=== PATIENT | female | born 1945 | race Caucasian/White ===

== ENCOUNTER → 2021-06-06 | Outpatient (CLI) | payer BC, MEDICARE ==
[~2021-06-06] MED LIST: CASIRIVIMAB (REGN10933) (EUA) 600 MG, IMDEVIMAB (REGN10987) (EUA) 600 MG in SODIUM CHLO... IVPB NR; SODIUM CHLORIDE 0.9% 50 ML IVPB NR; SODIUM CHLORIDE 0.9% 500 ML 500 ML in EMPTY BAG 1 BAG IV PRN
[2021-06-06 08:57] VITALS: RESP 16
[2021-06-06 10:10] VITALS: BP 145/67; PULSE 56; TEMP 98
== END ==
LOC: PROCWHC3 08:03
PROVIDERS: ATTEND Student in an Organized Health Care Education/Training Program
DX: U07.1 COVID-19 (principal)
CPT/HCPCS: 96361; 96365; M0243

== ENCOUNTER → 2021-12-10 | Outpatient (CLI) | payer MEDICARE ==
--- NOTE | 2021-12-10 11:03 | US ---
EXAMINATION TYPE: US kidneys/renal and bladder DATE OF EXAM: 12/10/2021 COMPARISON: NONE CLINICAL HISTORY: C64.9 MALIGNANT NEOPLASM OF UNSP KIDNEY, EXCEPT RE. Hx right renal cancer with tota l nephrectomy. Hx left renal cysts. EXAM MEASUREMENTS: Left Kidney: 12.0 x 5.5 x 5.4 cm Right Kidney: Surgically absent Left Kidney: Multiple cysts seen throughout kidney. Largest lateral lower = 2.9 x 2.1 x 2.3 cm. Larg est mid = 2.4 x 2.7 x 2.6 cm. Largest medial lower = 3.4 x 2.8 x 2.9 cm Bladder: distended, anechoic Left Jet seen There is no evidence for hydronephrosis at this point in time. No nephrolithiasis is seen. No solid masses are identified. The urinary bladder is anechoic. Bilateral ureteral jets are seen. IMPRESSION: 1. Right-sided nephrectomy. 2. Renal cystic changes left kidneys.
== END | disposition home or self-care (01) ==
LOC: RADUSWWP 10:29
PROVIDERS: ATTEND Internal Medicine
DX: N28.1 Cyst of kidney, acquired (principal); Z90.5 Acquired absence of kidney; Z85.528 Personal history of other malignant neoplasm of kidney
CPT/HCPCS: 76770

== ENCOUNTER → 2022-03-11 | Outpatient (CLI) | payer MEDICARE ==
--- NOTE | 2022-03-19 13:42 | MM ---
Reason for Exam: Screening (asymptomatic). Last mammogram was performed 1 year(s) and 8 month(s) ago. Patient History: Menarche at age 13. First Full-Term at age 19. Hysterectomy at age 36. Sister had breast cancer, age 45. Risk Values: Regla 5 year model risk: 3.3%. NCI Lifetime model risk: 7.0%. Prior Study Comparison: 10/02/2018 Bilateral MG screening mammo w CAD - 2, [place]. 04/12/2019 Left MG 3D diag mammo w/cad LT, [place]. 07/21/2020 Bilateral MG screening mammo w CAD - 2, [place]. Tissue Density: The breast tissue is heterogeneously dense. This may lower the sensitivity of mammography. Findings: Analyzed By CAD. There is no suspicious group of microcalcifications or new suspicious mass in either breast. Benign-appearing calcifications are noted. Overall Assessment: Benign, BI-RAD 2 Management: Screening Mammogram of both breasts in 1 year. A clinical breast exam by your physician is recommended on an annual basis and results should be correlated with mammographic findings. Electronically signed and approved by: Juan J Arboleda M.D. Radiologis
== END | disposition home or self-care (01) ==
LOC: RADMAMWWP 14:35
PROVIDERS: ATTEND Internal Medicine
DX: Z12.31 Encounter for screening mammogram for malignant neoplasm of breast (principal); Z80.3 Family history of malignant neoplasm of breast
CPT/HCPCS: 77063; 77067

== ENCOUNTER → 2023-03-11 | Outpatient (CLI) | payer MEDICARE ==
--- NOTE | 2023-03-11 08:37 | XR ---
EXAMINATION TYPE: XR chest 2V DATE OF EXAM: 03/11/2023 COMPARISON: NONE TECHNIQUE: PA and lateral views submitted. HISTORY: Shortness of breath FINDINGS: The lungs are clear and there is no pneumothorax, pleural effusion, or focal pneumonia. Heart size normal and no overt failure. Osseous structures demonstrate hypertrophic and degenerative changes of the spine. AC joint arthropathy bilateral shoulder surgical clips in the abdomen noted. IMPRESSION: 1. No acute process. Correlate for mild COPD.
== END | disposition home or self-care (01) ==
LOC: RADXRMAIN 08:17
PROVIDERS: ATTEND Internal Medicine
DX: R06.02 Shortness of breath (principal)
CPT/HCPCS: 71046

== ENCOUNTER → 2023-11-06 | Outpatient (CLI) | payer MEDICARE ==
--- NOTE | 2023-11-10 00:09 | MM ---
Reason for Exam: Screening (asymptomatic). Last mammogram was performed 1 year(s) and 8 month(s) ago. Patient History: Menarche at age 13. First Full-Term at age 19. Hysterectomy at age 36. Sister had breast cancer, age 45. Risk Values: Regla 5 year model risk: 3.2%. NCI Lifetime model risk: 6.2%. Prior Study Comparison: 04/12/2019 Left MG 3D diag mammo w/cad LT, [place]. 07/21/2020 Bilateral MG screening mammo w CAD - 2, [place]. 03/11/2022 Bilateral MG 3D screening mammo w/cad, [facility]. Tissue Density: There are scattered areas of fibroglandular density. Findings: Analyzed By CAD. There is no suspicious group of microcalcifications or new suspicious mass in either breast. Overall Assessment: Negative, BI-RAD 1 Management: Screening Mammogram of both breasts in 1 year. See note below in regards to patient's increased 5 year Regla score. Patient should continue monthly self-breast exams. A clinical breast exam by your physician is recommended on an annual basis. This exam should not preclude additional follow-up of suspicious palpable abnormalities. Note on Regla scores and lifetime risk: 1. A Regla score greater than 3% is considered moderate risk. If this is the case, consider specialist referral to assess eligibility for a risk reducing agent. 2. If overall lifetime risk for the development of breast cancer is 20% or higher, the patient may qualify for future screening with alternating mammogram and breast MRI. Electronically signed and approved by: Ayla Paige M.D. Radiologist
== END | disposition home or self-care (01) ==
LOC: RADMAMWWP 12:54
PROVIDERS: ATTEND Internal Medicine
DX: Z12.31 Encounter for screening mammogram for malignant neoplasm of breast (principal); Z80.3 Family history of malignant neoplasm of breast
CPT/HCPCS: 77063; 77067

== ENCOUNTER → 2023-11-11 | Outpatient (CLI) | payer MEDICARE ==
--- NOTE | 2023-11-11 17:18 | US ---
EXAMINATION TYPE: US kidneys/renal and bladder DATE OF EXAM: 11/11/2023 COMPARISON: US CLINICAL INDICATION: Female, 78 years old with history of Z90.5 ACQUIRED ABSENCE OF KIDNEY, RIGHT; F/ U, Right Kidney surgically absent EXAM MEASUREMENTS: Right Kidney: Surgically absent Left Kidney: 13.1 x 5.7 x 4.4 cm Right Kidney: Surgically absent Left Kidney: 3 cystic lesions visualized as seen on prior US 1)= Lateral- 2.5 x 2.6 x 2.5 cm, Previous= 2.9 x 2.1 x 2.3 cm 2)= Mid- 2.9 x 2.4 x 3.2 cm, Previous= 2.4 x 2.7 x 2.6 cm 3)= Upper- 3.2 x2.8 x 2.8 cm, Previous= 3.4 x 2.8 x 2.9 cm Bladder: wnl Bilateral Jets seen: Left jet visualized IMPRESSION: 1. Multiple simple cysts within the left kidney. 2. No evidence for left obstructive uropathy. 3. The right kidney is absent.
== END | disposition home or self-care (01) ==
LOC: RADUSWWP 15:05
PROVIDERS: ATTEND Internal Medicine
DX: N28.1 Cyst of kidney, acquired (principal); Z90.5 Acquired absence of kidney
CPT/HCPCS: 76770

== ENCOUNTER 2024-03-02 16:20 | Emergency (ER) | payer MEDICARE ==
[2024-03-02 16:35] VITALS: TEMP 97.6
--- NOTE | 2024-03-02 16:40 | ED ---
General Adult HPI - General Chief complaint: Fall Stated complaint: Fall-Head Injury Time Seen by Provider: 03/02/24 16:22 Source: patient Mode of arrival: EMS Limitations: no limitations - History of Present Illness Initial comments: Dictation was produced using [employer] dictation software. please excuse any grammatical, word or spelling errors. Chief Complaint: 78-year-old female presents to the emergency department for fall History of Present Illness: Patient 78-year-old female she was taking the trash out. She was using a cart to take trash out to the trash can. Her wheel got caught causing her car to fold and her to fall to the ground. Patient states she hit her face on the ground. EMS was called patient has a eyebrow laceration approximately 3 cm. Patient denies any loss of consciousness. She does not take any anticoagulation medications. Patient has no other complaints. The ROS documented in this emergency department record has been reviewed and confirmed by me. Those systems with pertinent positive or negative responses have been documented in the HPI. All other systems are other negative and/or noncontributory. - Related Data Home Medications Medication Instructions Recorded Confirmed Acetaminophen [Tylenol Arthritis] 650 mg PO DAILY 06/06/21 06/06/21 Aspirin 81 mg PO DAILY 06/06/21 06/06/21 Atorvastatin [Lipitor] 20 mg PO DAILY 06/06/21 06/06/21 Cholecalciferol [Vitamin D3 (25 25 mcg PO DAILY 06/06/21 06/06/21 Mcg = 1000 Iu)] Multivitamins, Thera [Multivitamin 1 tab PO DAILY 06/06/21 06/06/21 (formulary)] Propranolol HCl [Propranolol HCl 60 mg PO DAILY 06/06/21 06/06/21 ER] Allergies Allergy/AdvReac Type Severity Reaction Status Date / Time No Known Allergies Allergy Verified 03/02/24 16:35 Review of Systems ROS Statement: Those systems with pertinent positive or pertinent negative responses have been documented in the HPI. ROS Other: All systems not noted in ROS Statement are negative. Past Medical History Past Medical History: Cancer Additional Past Medical History / Comment(s): Mitral Valve Prolapse. Arthritis. Kidney Cancer - 2009 History of Any Multi-Drug Resistant Organisms: None Reported Past Surgical History: Section, Hysterectomy Additional Past Surgical History / Comment(s): Right Kidney Removal Past Psychological History: No Psychological Hx Reported Smoking Status: Never smoker Past Alcohol Use History: None Reported Past Drug Use History: None Reported General Exam - General Exam Comments Initial Comments: PHYSICAL EXAM: General Impression: Alert and oriented x3, not in acute distress HEENT: Left eyebrow hematoma, 3 cm laceration over the left eyebrow, no septal hematoma, no facial instability extra-ocular movements intact, pupils equal and reactive to light bilaterally, mucous membranes moist. Cardiovascular: Heart regular rate and rhythm Chest: Able to complete full sentences, no retractions, no tachypnea Abdomen: abdomen soft, non-tender, non-distended, no organomegaly Musculoskeletal: Pulses present and equal in all extremities, no peripheral edema Motor: no focal deficits noted Neurological: CN II-XII grossly intact, no focal motor or sensory deficits noted Skin: Intact with no visualized rashes Psych: Normal affect and mood Limitations: no limitations Course Vital Signs 03/02/24 03/02/24 16:26 18:26 Temperature 97.6 F Pulse Rate 76 84 Respiratory 20 18 Rate Blood Pressure 182/101 180/72 O2 Sat by Pulse 98 98 Oximetry Procedures - Laceration Laceration #1 Consent Obtained: verbal consent, emergent situation Indication: laceration Site: face Description: linear Anesthetic Used: lidocaine 1% Anesthesia Technique: local infiltration Type of Sutures: nylon Size of Sutures: 6-0 Number of Sutures: 5 Technique: simple, interrupted Patient Tolerated Procedure: well Medical Decision Making - Medical Decision Making Was pt. sent in by a medical professional or institution (MILE Dahl, SENIOR PRODUCT DEVELOPMENT ENGINEER, urgent care, hospital, or alf...) When possible be specific @ -No Did you speak to anyone other than the patient for history (EMS, parent, family, police, friend...)? What history was obtained from this source @ -Some history obtained from EMS as described above Did you review nursing and triage notes (agree or disagree)? Why? @ -I reviewed and agree with nursing and triage notes Were old charts reviewed (outside hosp., previous admission, EMS record, old EKG, old radiological studies, urgent care reports/EKG's, alf records)? Report findings @ -No old charts were reviewed Differential Diagnosis (chest pain, altered mental status, abdominal pain women, abdominal pain men, vaginal bleeding, musculoskeletal, weakness, fever, dyspnea, syncope, headache, dizziness, GI bleed, back pain, seizure, CVA, palpatations, mental health)? @ -Skull fracture, facial fracture, nasal fracture EKG interpreted by me (3pts min.). @ -None done X-rays interpreted by me (1pt min.). @ -None done CT interpreted by me (1pt min.). @ -CT scan of the head and C-spine shows no acute intracranial processes or acute cervical processes. CT scan of the face shows no severe traumatic issues. U/S interpreted by me (1pt. min.). @ -None done What testing was considered but not performed or refused? (CT, X-rays, U/S, labs)? Why? @ -None What meds were considered but not given or refused? Why? @ -None Was smoking cessation discussed for >3mins.? @ -No Were there social determinants of health that impacted care today? How? (Homelessness, low income, unemployed, alcoholism, drug addiction, transportation, low edu. Level, literacy, decrease access to med. care, senior living, rehab)? @ -No Was there de-escalation of care discussed even if they declined (Discuss DNR or withdrawal of care, Hospice)? DNR status @ -No What co-morbidities impacted this encounter? (DM, HTN, Smoking, COPD, CAD, Cancer, CVA, ARF, Chemo, Hep., AIDS, mental health diagnosis, sleep apnea, morbid obesity)? @ -None Was patient admitted / discharged? Hospital course, mention meds given and rout e, prescriptions, significant lab abnormalities, going to OR and other pertinent info. @ -78-year-old female presents emergency department after mechanical fall. Vital signs stable. Laceration was repaired at bedside. See above for procedural note. CT imaging is negative. Patient's tetanus was updated. Patient discharged with instructions for suture removal in 5 days Did you discuss the management of the patient with other professionals (professionals i.e. , PA, SENIOR PRODUCT DEVELOPMENT ENGINEER, lab, RT, psych nurse, director social, die mounter, teacher, bomb squad officer, case preparer and liner)? Give summary @ -No Was critical care preformed (if so, how long)? @ -No Undiagnosed new problem with uncertain prognosis? @ -No Drug Therapy requiring intensive monitoring for toxicity (Heparin, Nitro, Insulin, Cardizem)? @ -No Were any procedures done? @ -No Diagnosis/symptom? Acute, or Chronic, or Acute on Chronic? Uncomplicated (without systemic symptoms) or Complicated (systemic symptoms)? @ -Patient contusion, facial laceration Side effects of treatment? @ -No Exacerbation, Progression, or Severe Exacerbation? @ -No Poses a threat to life or bodily function? How? (Chest pain, [place], PR, pneumonia, PE, COPD, DKA, ARF, appy, cholecystitis, CVA, Diverticulitis, Homicidal, Suicidal, threat to staff... and all critical care pts) @ -No Disposition Clinical Impression: Fall Disposition: HOME SELF-CARE Condition: Fair Instructions (If sedation given, give patient instructions): Fall Prevention for Older Adults (ED) Additional Instructions: suture removal in 5-7 days Is patient prescribed a controlled substance at d/c from ED?: No Referrals: Delgado Veras MD [Primary Care Provider] - 1-2 days Time of Disposition: 18:33
[2024-03-02] MEDS: LIDOCAINE 2%-EPI 1:100,000 20 ML VIAL SQ STA (16:46)
[2024-03-02] MEDS: DIPH,PERTUS(ACELL)TETVAC-LF 0.5 ML VIAL IM ONE (16:48)
[2024-03-02 18:27] VITALS: RESP 18
--- NOTE | 2024-03-02 18:27 | CT ---
EXAMINATION TYPE: CT brain cspine wo con, CT facial bones wo con CT DLP: 1183.8 combined dlp mGycm, Automated exposure control for dose reduction was used. DATE OF EXAM: 03/02/2024 6:09 PM COMPARISON: None CLINICAL INDICATION:Female, 78 years old with history of fall; fell face first. lac to left side, jaime ck eye. TECHNIQUE: Brain: Multiple axial CT images of the brain were obtained without IV contrast. Cspine: Axial CT images from the skull base to the inferior aspect of T2 we obtained without intraven ous contrast. Coronal and sagittal reformatted images were also reviewed. Facial: Axial imaging max of facial structures with sagittal coronal reformats. FINDINGS: Brain: Extra-axial spaces: No abnormal extra-axial fluid collections. Ventricular system: Within normal limits Cerebral parenchyma: No acute intraparenchymal hemorrhage or mass effect. The yepez-white junction is well differentiated. Cerebellum: Unremarkable. Mass effect: No evidence of midline shift. Intracranial vasculature: Atherosclerotic calcifications of the intracranial vessels. Soft tissues: Normal. Calvarium/osseous structures: No depressed skull fracture. Paranasal sinuses and mastoid air cells: Clear. Visualized orbits: Orbital contents are intact. Cervical spine: Fracture: None. Osseous structures: Multilevel degenerative disc disease changes with endplate spurring and disc oste ophyte complex's. Large osteophytes impresses upon the esophagus throughout the neck. There is ankylo sis of the lateral processes of C4-C5 on the left and the C2 through C4 on the right. Vertebral alignment: Within normal limits. Spinal canal/Neural Foramina: Disc osteophyte complexes at C5-C6 with at least moderate to severe spi nal canal stenosis. Facet joint uncovertebral joint arthropathy scattered throughout the cervical spi ne with varying degrees of neural foraminal stenosis. Findings worse at C5-C6 and C6-C7 with at least moderate bilateral. Neck soft tissues: Prevertebral soft tissues are within normal limits. Other: The airway is patent. The lung apices are clear. Facial: Left periorbital scalp edema/laceration noted. No evidence of fracture. The globes and orbits appear intact.. IMPRESSION: 1. No acute intracranial process. 2. No evidence of cervical spine fracture. 3. Moderate to severe multilevel degenerative disc disease. 4. Moderate to severe spinal canal stenosis at C5-C6 5. Left periorbital scalp edema/small laceration. No evidence of fracture.
[2024-03-02 18:57] VITALS: BP 168/72; PULSE 75
== END 2024-03-02 18:57 | disposition home or self-care (01) ==
LOC: EC 16:20
DX: S01.112A Laceration without foreign body of left eyelid and periocular area, initial encounter (principal); Z23 Encounter for immunization; W18.30XA Fall on same level, unspecified, initial encounter; Y92.009 Unspecified place in unspecified non-institutional (private) residence as the place of occurrence of the external cause
CPT/HCPCS: 12013; 70450; 70486; 72125; 90471; 90715; 93005; 99284

== ENCOUNTER → 2025-02-17 | Outpatient (CLI) | payer MEDICARE ==
--- NOTE | 2025-02-17 09:51 | MM ---
Reason for Exam: Screening (asymptomatic). Last mammogram was performed 1 year(s) and 3 month(s) ago. Patient History: Menarche at age 13. First Full-Term at age 19. Hysterectomy at age 36. Sister had breast cancer, age 45. Risk Values: Regla 5 year model risk: 3.2%. NCI Lifetime model risk: 5.7%. Prior Study Comparison: 07/21/2020 Bilateral MG screening mammo w CAD - 2, [place]. 03/11/2022 Bilateral MG 3D screening mammo w/cad, [facility]. 11/06/2023 Bilateral MG 3D screening mammo w/cad, [facility]. Tissue Density: There are scattered areas of fibroglandular density. Findings: Analyzed By CAD. Right breast: There is no suspicious group of microcalcifications or new suspicious mass. Left breast: There is no suspicious group of microcalcifications or new suspicious mass. Overall Assessment: Negative, BI-RAD 1 Management: Screening Mammogram of both breasts in [address] [facility] will attempt to contact patient to return for supplemental views and ultrasound if indicated. Patient should continue monthly self-breast exams. A clinical breast exam by your physician is recommended on an annual basis. This exam should not preclude additional follow-up of suspicious palpable abnormalities. Note on Regla scores and lifetime risk: 1. A Regla score greater than 3% is considered moderate risk. If this is the case, consider specialist referral to assess eligibility for a risk reducing agent. 2. If overall lifetime risk for the development of breast cancer is 20% or higher, the patient may qualify for future screening with alternating mammogram and breast MRI. [facility], , 02/17/2025 9:48 AM. Electronically signed and approved by: Kristopher Hernandez DO
--- NOTE | 2025-02-17 12:13 | XR ---
EXAMINATION TYPE: XR chest 2V DATE OF EXAM: 02/17/2025 9:46 AM COMPARISON: 03/12/2023 CLINICAL INDICATION: Female, 79 years old with history of dyspnea and shortness of breath TECHNIQUE: PA and lateral views FINDINGS: Heart borderline enlarged. Mildly tortuous/ectatic thoracic aorta. Unchanged eventration anterior rig ht hemidiaphragm. No consolidation or pleural effusion. DISH mid and lower thoracic spine. IMPRESSION: Borderline heart size. Similar eventration anterior right hemidiaphragm. DISH mid and lower thoracic spine. No acute cardiopulmonary process. [facility], Workstation: [facility], 02/17/2025 12:10 PM
== END | disposition home or self-care (01) ==
LOC: RADMAMWWP 09:03
PROVIDERS: ATTEND Internal Medicine
DX: Z12.31 Encounter for screening mammogram for malignant neoplasm of breast (principal); R92.323 Mammographic fibroglandular density, bilateral breasts; Z80.3 Family history of malignant neoplasm of breast; J98.6 Disorders of diaphragm
CPT/HCPCS: 71046; 77063; 77067